=== PATIENT | male | born 1980 | race Two or more races ===

== ENCOUNTER 2019-09-11 23:02 | Inpatient (IN) | payer MEDICAID ==
[~2019-09-11] VITALS: Ht 180.3 cm; Wt 87.5 kg
[2019-09-12] VITALS: BP 143/85
--- NOTE | 2019-09-12 00:05 | NUR ---
MS PROFILE GRINDER NOTES PATIENT ARRIVED ONTO UNIT VIA GURNEY WITH TWO TRANSPORTERS FROM [place] DIRECT ADMISSION. PATIENT IS A/O X4, ABLE TO AMBULATE. STABLE ON ROOM AIR, NO SOB NOTED. VITAL SIGNS STABLE, WNL. LEFT FA IV PATENT AND INTACT FROM [facility]. NO CURRENT COMPLAINTS OF PAIN, HAS ABDOMINAL DISCOMFORT. PATIENT BELONGINGS WERE ACCOUNTED FOR. PATIENT ORIENTED TO ROOM. WILL FOLLOW UP WITH ORDERS AND EDD.
[2019-09-12] MEDS ORDERED: Z GUARD REMEDY 2 OZ OINT TP PRN (00:30)
[2019-09-12] MEDS ORDERED: MAGNESIUM HYDROXIDE 30 ML UDC PO PRN (00:30)
[2019-09-12] MEDS ORDERED: MAG HYDROX/AL HYDROX/SIMETH 30 ML UDC PO PRN (00:30)
[2019-09-12] MEDS ORDERED: ONDANSETRON HCL/PF 4 MG/2 ML VIAL IVP PRN (00:30)
[2019-09-12] MEDS ORDERED: ZOLPIDEM TARTRATE 5 MG TABLET PO PRN (00:30)
[2019-09-12] MEDS ORDERED: ACETAMINOPHEN 325 MG TABLET PO PRN (00:30)
[2019-09-12] MEDS: PANTOPRAZOLE 40 MG VIAL IV SCH ×3 (00:32→20:27)
[2019-09-12] MEDS: IV D5/0.45 NACL 1,000 ML IV PRN ×2 (00:34→16:37)
[2019-09-12 00:40] LABS: BASOPHILS % (AUTO) 0.6 % (0.0-2.0); EOSINOPHILS % (AUTO) 1.7 % (0.0-6.0); HEMATOCRIT 41 % (39-51); HEMOGLOBIN 13.9 g/dL (13.5-17.5); LYMPHOCYTES # (AUTO) 3.5 /CMM (0.8-4.8); LYMPHOCYTES % (AUTO) 44.2 % (20.0-44.0); MEAN CORPUSCULAR HGB CONC 34 g/dl (31.0-36.0); MEAN CORPUSCULAR VOLUME 87 fL (80-96); MONOCYTES # (AUTO) 0.6 /CMM (0.1-1.30); MONOCYTES % (AUTO) 7.1 % (2.0-12.0); NEUTROPHILS # (AUTO) 3.7 /CMM (1.8-8.9); NEUTROPHILS % (AUTO) 46.4 % (43.0-81.0); PLATELET COUNT (AUTO) 222 /CMM (150-450); RED BLOOD CELL COUNT(AUTO) 4.76 MIL/uL (4.5-6.0)
--- NOTE | 2019-09-12 05:57 | NUR ---
MS RN CLOSING NOTES PATIENT IS CURRENTLY RESTING IN BED WATCHING TV, A/O X4. PATIENT IS AMBULATORY, ABLE TO MAKE ALL NEEDS KNOWN. STABLE ON ROOM AIR, BREATHING EVEN AND UNLABORED, NO SOB. NO CURRENT COMPLAINTS OF PAIN OR DISCOMFORT. IV LOCATED ON L UA RUNNING D5 1/2 NS. ALL NEEDS WERE MET THROUGHOUT THE SHIFT. SAFETY PRECAUTIONS IN PLACE WITH BED IN LOWEST POSITION, BREAKS ON, AND CALL LIGHT WITHIN REACH. WILL ENDORSE TO ONCOMING SHIFT ABOUT EDD.
--- NOTE | 2019-09-12 07:00 | NUR ---
MS/RN Opening Pt received AOx4, able to response all stimuli. Respiratory even and unlabored, skin is warm to touch clean/dry. No c/o pain or discomfort abdomen or n/v at this time. Intact IV site, kept low position of bed with elevated HOB. Call light within reach, will continue to monitor.
[2019-09-12 07:44] VITALS: BP 103/69
[2019-09-12 08:00] VITALS: BP 103/69
[2019-09-12] MEDS: HYDROCODONE/APAP 5/325MG 1 EACH TABLET PO PRN ×2 (11:43→20:27)
--- NOTE | 2019-09-12 12:14 | NUR ---
Social service consult requested by SOHAIL Thakur for possible homelessness. Pt. is a 38 year old male who was admitted to [facility] for GI Bleed. SW met with the pt. bedside. Pt. is alert and oriented x 4. Pt. is cooperative with SW during the assessment. Pt. denies being homeless and states he resides at [address] [place] [address] in [place]. Pt. states, he resides there with his and mother. Pt. was incarcerated for 3 years in jail and was released on 09/05/19. When asked, if he is able to return home upon discharge, pt. stated, " I hope so." Pt. has a history of drug use but hasn't used in the past 3 years. Pt. denies alcohol use at this time. Pt. denies any psychiatric diagnoses. pt. denies suicidal and homicidal ideations and visual/auditory hallucinations at this time. Pt. will require a TAP card upon discharge. No other social service needs are requested at this time. SW is available, if needed. CORNELL updated SOHAIL Thakur with updated information.
[2019-09-12 16:00] VITALS: BP 107/63
--- NOTE | 2019-09-12 18:26 | NUR ---
MS/RN Closing Patient consumed lunch and dinner 100%, denies abdominal and upper chest pain, discomfort. Pt had no BM during this shift. Respiratory even and unlabored, running IV fluid due to patient requested for hydration. Kept low position of the bed with elevated HOB. Call light within reach, will continue to monitor.
--- NOTE | 2019-09-12 19:15 | NUR ---
MS RN NOTES RECEIVED ON BED A/O X4,BREATHING NORMAL,NOT IN ANY FORM OF DISTRESS,LUIS M DISCOMFORTS AT THE MOMENT.PRESENT IVF INFUSING WELL ON LIZZY SALINE LOCK VIA IV PUMP.SITE PATENT.CALL LIGHT IN REACH,NEEDS ANTICIPATED.
[2019-09-12 20:01] VITALS: BP 116/76
[2019-09-12 20:10] VITALS: BP 116/76
--- NOTE | 2019-09-12 20:27 | NUR ---
MS RN NOTES PAIN MANAGEMENT C/O ABDOMINAL PAIN 6/10 ON PAIN SCALE,MEDICATED WITH NORCO 5/325MG,1 TAB PO ORDERED PRN FOR MODERATE PAIN
--- NOTE | 2019-09-13 00:52 | NUR ---
MS RN NOTES PAIN MANAGEMENT EFFECTIVE,NO DISTRESS.ENDORSED TO JACLYN SAUCEDA FOR EDD
[2019-09-13 06:34] LABS: BASOPHILS % (AUTO) 0.2 % (0.0-2.0); EOSINOPHILS % (AUTO) 1.5 % (0.0-6.0); HEMATOCRIT 40 % (39-51); HEMOGLOBIN 13.6 g/dL (13.5-17.5); LYMPHOCYTES # (AUTO) 3.7 /CMM (0.8-4.8); LYMPHOCYTES % (AUTO) 43.5 % (20.0-44.0); MEAN CORPUSCULAR HGB CONC 34 g/dl (31.0-36.0); MEAN CORPUSCULAR VOLUME 87 fL (80-96); MONOCYTES # (AUTO) 0.7 /CMM (0.1-1.30); MONOCYTES % (AUTO) 7.8 % (2.0-12.0); NEUTROPHILS # (AUTO) 3.9 /CMM (1.8-8.9); PLATELET COUNT (AUTO) 216 /CMM (150-450); RED BLOOD CELL COUNT(AUTO) 4.59 MIL/uL (4.5-6.0); WHITE BLOOD COUNT (AUTO) 8.4 K/uL (4.3-11.0)
--- NOTE | 2019-09-13 06:40 | NUR ---
MS RN CLOSING NOTES PATIENT IN BED ALERT AND ORIENTED X 4. VERBALLY RESPONSIVE AND ABLE TO FOLLOW DIRECTIONS. BREATHING REGULAR AND UNLABORED ON ROOM AIR. LEFT FOREARM G20 IV LINE INTACT AND INFUSING WELL. NO COMPLAINTS OF PAIN/DISCOMFORT REPORTED OF THE TIME. BED LOW AND LOCKED ON SEMI FOWLERS POSITION. CALL LIGHT IN REACH. WILL ENDORSE TO MORNING SHIFT FOR EDD.
[2019-09-13 07:02] LABS: CALCIUM, SERUM 8.2 mg/dL (8.5-10.1); MAGNESIUM 2.2 mg/dL (1.8-2.4); PHOSPHORUS 3.1 mg/dL (2.5-4.9)
--- NOTE | 2019-09-13 07:15 | NUR ---
MS RN OPENING NOTES RECEIVE PT IN BED, ASLEEP, EASILY AROUSED. A/O X4. PT TOLERATING RA WITH NO ACUTE RESPIRATORY DISTRESS NOTED. PT DENIES ANY PAIN OR DISCOMFORT AT THIS TIME. PT ALSO DENIES ANY CONCERNS OR QUESTIONS WELL. PT STATED HE WAS SEEN BY A GI MD BUT CANT REMEMBER THE NAME. PT ALSO AWARE HE NEEDS TO GIVE STOOL SPECIMEN BUT UP TO THIS MOMENT PT ADDED HE HASN'T GONE BECAUSE HE WAS NPO. IVF D5 1/2 NS AT 125 ML/HR TO LIZZY G20, INTACT AND FLUID INFUSING WELL. PT KEPT COMFORTABLE. CALL LIGHT KEPT WITHIN REACH. PT'S BED IN LOWEST, LOCKED POSITION WITH SR X3. WILL CONTINUE PLAN OF CARE.
[2019-09-13 08:00] VITALS: BP 116/69
[2019-09-13] MEDS: PANTOPRAZOLE 40 MG VIAL IV SCH ×2 (08:24→21:03)
--- NOTE | 2019-09-13 10:00 | NUR ---
MS RN NOTES STOOL COLLECTED FOR OB. SENT TO LAB.
[2019-09-13 12:45] LABS: OCCULT BLOOD STOOL NEGATIVE (NEGATIVE)
[2019-09-13 16:00] VITALS: BP 123/92
[2019-09-13] MEDS: HYDROCODONE/APAP 5/325MG 1 EACH TABLET PO PRN (18:16)
--- NOTE | 2019-09-13 18:50 | NUR ---
MS RN CLOSING NOTES PT REMAINS IN THE ROOM, IN BED, AWAKE. A/O X4. PT TOLERATING RA WITH NO ACUTE RESPIRATORY DISTRESS NOTED. PT COMPLAINED OF ABD PAIN OF 7/10, PRN NORCO GIVEN ORDERED. IVF D5 1/2 NS AT 125 ML/HR TO LIZZY G20, INTACT AND FLUID INFUSING WELL. PT KEPT COMFORTABLE. ALL NEEDS AND CARE ATTENDED. CALL LIGHT KEPT WITHIN REACH. PT'S BED IN LOWEST, LOCKED POSITION WITH SR X3. WILL ENDORSE TO INCOMING NIGHT NURSE FOR EDD.
--- NOTE | 2019-09-13 19:39 | NUR ---
MS RN NOTES RECEIVED OUT OF BED,WALKING ON THE HALLWAYS,DENIES ABDOMINAL PAIN.NEGATIVE STOOL OB,SALINE LOCK LEFT UPPER ARM INTACT AND PATENT.IVF ON HOLD AT THE MOMENT.CALL LIGHT IN REACH,NEEDS ANTICIPATED.
[2019-09-13 19:55] VITALS: BP 126/55
[2019-09-13 20:00] VITALS: BP 126/55
--- NOTE | 2019-09-13 21:00 | NUR ---
MS RN NOTES OFFERED TO PUT BACK IVF BUT REFUSED.CLAIMED SHE'S BEEN DRINKING WATER A LOT
--- NOTE | 2019-09-14 06:38 | NUR ---
MS RN NOTES FAIRLY RESTED,NO SIGNIFICANT CHANGE IN STATUS.DENIES ABDOMINAL PAIN,AWAITING GI CONSULT.STOOL OB NEGATIVE.IN NO ACUTE DISTRESS.WILL ENDORSE TO DAY NURSE FOR EDD.
--- NOTE | 2019-09-14 07:24 | NUR ---
MS RN NOTES PATIENT RECEIVED RESTING INSIDE ROOM. AWAKE, A/O X 4. NO ACUTE DISTRESS. DENIES ANY PAIN OR DISCOMFORT AT THIS TIME. NO CHANGES IN LOC NOTED. RECEIVED ENDORSEMENT FROM [facility]OUS SHIFT THAT PATIENT REFUSES IVF. RISKS AND BENEFITS EXPLAINED TO PATIENT BUT TO NO AVAIL, STILL CONTINUES TO REFUSE IV. PATIENT ABLE TO TOLERATE PO FOOD AND DRINK WITHOUT DIFFICULTY WITH SWALLOWING. SAFETY PRECAUTIONS IN PLACE. WILL CONTINUE TO MONITOR. BED LOCKED AND IN LOW POSITION. BILATERAL UPPER SIDE RAILS UP AND LOCKED. CALL LIGHT WITHIN EASY REACH
[2019-09-14 07:31] LABS: ALBUMIN 3.3 g/dL (3.4-5.0); BILIRUBIN,TOTAL 0.3 mg/dL (0.2-1.0); CALCIUM, SERUM 8.1 mg/dL (8.5-10.1); CREATININE 0.9 mg/dL (0.6-1.3); POTASSIUM 3.9 mmol/L (3.5-5.1); TOTAL PROTEIN, SERUM 6.8 g/dL (6.4-8.2)
[2019-09-14 08:00] VITALS: BP 114/70
[2019-09-14] MEDS: PANTOPRAZOLE 40 MG VIAL IV SCH (08:57)
[2019-09-14] MEDS ORDERED: PANT40TA4 PO (13:22)
--- NOTE | 2019-09-14 15:13 | NUR ---
MS RN NOTES PATIENT WITH ORDER FROM HOSPITALIST FOR DISCHARGE, PATIENT TO DISCHARGE HOME. DISCHARGE INSTRUCTIONS AND EDUCATION PROVIDED AND PATIENT VERBALIZED UNDERSTANDING. IV REMOVED, TIP INTACT, PRESSURE DRESSING PLACED ON SITE. ID BAND REMOVED. WRITTEN PRESCRIPTION PROVIDED TO PATIENT. ALL BELONGINGS COMPLETE ON DISCHARGE, NO REPORT OF MISSING INVENTORY. NO SKIN BREAKDOWN NOTED ON DISCHARGE. PATIENT LEFT UNIT AMBULATORY, ACCOMPANIED BY LICENSED STAFF TO PARKING LOT. LEFT HOSPITAL PREMISES AMBULATORY. HOSPITALIST AWARE OF DISCHARGE.
== END 2019-09-14 15:10 | disposition home or self-care (01) | DRG 243 ==
LOC: TELE 23:45 → MED 23:53
PROVIDERS: ADMIT Hospitalist; ATTEND Hospitalist
DX: K21.9 Gastro-esophageal reflux disease without esophagitis (principal); E78.1 Pure hyperglyceridemia; K59.00 Constipation, unspecified; Z83.3 Family history of diabetes mellitus; Z82.49 Family history of ischemic heart disease and other diseases of the circulatory system
CPT/HCPCS: 36415; 74018; 80048-TC; 80053-TC; 80061-TC; 82272-TC; 83690-TC; 83735-TC; 84100-TC; 85025-TC; 85730-TC; 87081-TC; C9113; G0378; J2405; J3490